=== PATIENT | female | born 1935 | race Caucasian/White ===

== ENCOUNTER 2016-06-24 11:51 | Inpatient (IN) | payer MEDICARE, OTHER ==
--- NOTE | ~2016-06-24 | DS ---
Discharge Summary [facility] [address] [facility] [place] [place]. [address] NAME: IVAN PEREYRA : 37 STATUS : DIS IN PAT#: [id number] AGE: 81 ADM/REG DATE : 06/24/16 MR#: [id number] REPORT SERV DATE: 07/01/16 DICTATED BY: TERRENCE CONNOR DATE: 06/30/16 REPORT STATUS : Draft TRANSCRIBED BY: MODL DATE: 06/30/16 ADMISSION DATE: 06/24/2016 DISCHARGE DATE: 06/30/2016 DISCHARGE DIAGNOSES: 1. Enterococcal sepsis. 2. Enterococcal pyelonephritis. 3. Acute kidney injury, currently improved. 4. Chronic kidney disease, stage V. 5. Hypokalemia, improved. 6. Metabolic acidosis, resolved. 7. Uncontrolled hypertension, improved. 8. Chronic pain, on home medications. 9. Bradyarrhythmia, possibly rate to Robinul, currently stable. 10.Chronic anemia. 11.Acute thrombocytopenia with present illness, currently improved. 12.Anxiety and depression, on treatment. 13.Deconditioning and immobility, will need rehab. 14.Chronic obstructive pulmonary disease. 15.Pleural effusions. 16.Asymptomatic cholelithiasis. 17.Nonobstructing renal stone. 18.Asymptomatic diverticulosis. 19.B12. OPERATIONS AND PROCEDURES: None. BRIEF HISTORY OF PRESENT ILLNESS: The patient is an 81-year-old female, who was triaged in the emergency room for complaint of generalized weakness and an elevated temperature. For detailed history and physical exam, please see note dictated by Dr. Teetee Vaughn on 06/24/2016. HOSPITAL COURSE: After being admitted to the hospital, this patient was cared for by Dr. Sj Blandon. Please refer to interim summary dictated by Dr. Blandon on 06/29/2016. I took over this patient's care on 06/30/2016. This patient was doing fairly well. All her parameters remained stable. After discussing her care with Dr. Blandon, it was decided that she was ready to go to a skilled unit. She was approved and is being discharged to skilled unit. DISCHARGE DISPOSITION: To group home facility. DISCHARGE ACTIVITY: Per facility. DISCHARGE DIET: Low-sodium diet. DISCHARGE MEDICATIONS: Acetaminophen with codeine 15 mL every four hours for pain, Norvasc 5 Discharge Summary [facility] [address] [place]. [address] NAME: IVAN PEREYRA : 36 STATUS : DIS IN PAT#: [id number] AGE: 81 ADM/REG DATE : 06/24/16 MR#: [id number] REPORT SERV DATE: 07/01/16 DICTATED BY: TERRENCE CONNOR DATE: 06/30/16 REPORT STATUS : Draft TRANSCRIBED BY: MODL DATE: 06/30/16 mg twice daily, vitamin B12 of 2500 mcg once daily, Lexapro 20 mg once daily, Pepcid 20 mg once daily, heparin 5000 units subcu every 12 hours, potassium 20 mEq once daily, sodium bicarb 1300 mg p.o. three times daily, ampicillin 1 g every six hours through 07/07/2016. Colace 100 mg p.o. daily p.r.n., Zofran 4 mg p.o. sublingual p.r.n., Lasix 20 mg p.o. daily. Over the counter eye drops. DISCHARGE FOLLOWUP: With Dr. Reta Chan post rehab. About 25 minutes spent planning this patient's discharge, reviewing reconciled medications by Dr. Blandon, documenting this discharge. KEY/STIVEN Terrence Connor M.D. / [id number] CC: Gal Burgess D.O.
--- NOTE | ~2016-06-24 | HP ---
History And Physical [place] [id number] [facility] [place]. [address] NAME: IVAN PEREYRA : 36 STATUS : ADM IN [facility]#: [id number] AGE: 81 ADM/REG DATE : 06/24/16 MR#: [id number] REPORT SERV DATE: 06/24/16 DICTATED BY: DANILO VAUGHN DATE: 06/24/16 REPORT STATUS : Draft TRANSCRIBED BY: STIVEN DATE: 06/24/16 DATE OF ADMISSION: 06/24/2016 CHIEF COMPLAINT: Fever. HISTORY OF PRESENT ILLNESS: The patient is an 81-year-old white female, who resides with her family. 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 So it is difficult to tell exactly with the history is but they do report that over the last 24 hours, she has felt poor. She has been generally weak. Was unable to stand last evening. Today she had a fever up to 103 in the emergency department. She denies dysuria. She did have chills. She denies abdominal pain. Denies chest pain, has not had any nausea, vomiting, or diarrhea, just some vague complaints of fever and weakness. She presented here via family. She is very resistant to really receive any medical care. She refuses lab sticks at doctor's offices and has not really followed up with Nephrology as she was supposed to. She was here back in July 2014 with an episode of acute kidney injury. Creatinine as high as 9 at that time, the etiology was unclear. Discharge creatinine was around 3.7. She was subsequently supposed to follow up with Nephrology which I am not sure that she ever did. Her last labs here are from August 2014 and at that time, her creatinine was 3.6. No other real history is obtainable. She was flu negative here in the ER. PAST MEDICAL HISTORY: 1. Previous hypertension. 2. Obesity, status post gastric bypass. 3. Depression. 4. Osteoarthritis. 5. Chronic kidney disease. 6. Possible COPD is listed. 7. Anemia chronic. SURGICAL HISTORY: Gastric bypass surgery. Cataract surgery. Breast biopsy. Carpal tunnel repair. ALLERGIES: NO KNOWN DRUG ALLERGIES. HOME MEDICATIONS: Reviewed and attached. SOCIAL HISTORY: She continues to smoke about a half pack per day. She quit for some time but she started back recently. She smoked for many years, up to 30 years ago. She drinks 2 beers to 4 beers per day but does not use any drugs. She lives with family member. She sleeps in a recliner. She still ambulates but it is difficult. REVIEW OF SYSTEMS: Full 10-point review of systems obtained with pertinent and positives mentioned in the HPI. FAMILY HISTORY: Mother is living at 102, she suffers from anemia and heart failure. Her father of hepatitis C and cirrhosis. History And Physical [address] [address] NAME: IVAN PEREYRA : 37 STATUS : ADM IN PAT#: [id number] AGE: 81 ADM/REG DATE : 06/24/16 MR#: [id number] REPORT SERV DATE: 06/24/16 DICTATED BY: DANILO VAUGHN DATE: 06/24/16 REPORT STATUS : Draft TRANSCRIBED BY: STIVEN DATE: 06/24/16 PHYSICAL EXAMINATION: VITAL SIGNS: She is currently 98/44, recheck was 102/41, other blood pressure was 100/38, sats are 94%, respiratory rate of 21, and pulse is in the 60s to 70s, and T-max here was 103.2. GENERAL: Well-developed white female, obese HEENT: Normocephalic, atraumatic. Throat is clear. NECK: Supple. HEART: Regular rate and rhythm. LUNGS: Grossly clear but diminished at the bases. ABDOMEN: Soft, nondistended. She had some minimal tenderness in the suprapubic area. EXTREMITIES: Warm and dry. Skin is intact. She had no obvious rashes or lesions. NEUROLOGIC: She has had her eyes closed sleepy but arouses easily and answers questions appropriately although she does not recall some of the details of her ongoing illness her family reports this is not new. Speech is intact. Strength and tone are symmetrical in all four extremities. LAB AND X-RAY STUDIES: UA shows large blood, moderate leukocyte esterase, 28 white cells, as well as 44 reds. Basic metabolic panel is essentially sodium 140, potassium 3.7, chloride 107, CO2 of 21, BUN and creatinine 35 and 3.70. Glucose 108. LFTs are normal with an albumin of 2.9. Chest x-ray shows bibasilar atelectasis. Lactate is 2.1. CBC: She has a white count of 9, H and H 10.8 and 33.5, platelets are 156. Coags are normal. Flu swab is negative. ASSESSMENT/PLAN: 1. Febrile illness with associated positive UA likely consistent with urinary tract infection. We will place her on empiric antibiotics given the fact that she has SIRS/sepsis upon presentation with an elevated procalcitonin of 0.69. I am going to treat her more aggressively. She has a history of Enterococcus on a previous urine culture. We will cover her with IV Zosyn and vancomycin. We will culture her blood and her urine. We will follow her hemodynamics closely. I am going to aggressively fluid resuscitate her right now in the emergency department. She is going to get an additional liter of normal saline now, then 2 more liters at 200 mL an hour, then we will change her over to some half-normal maintenance fluids. We will place the Jerez catheter. I think given the fact she has significant blood in her urine and urinary tract infection with obvious SIRS or sepsis. I think she does need a CT of her abdomen and pelvis to rule out obstruction. We will do a stat CT of the abdomen and pelvis without contrast. 2. Chronic kidney disease. Her creatinine is where it was when she left in August 2014. I am not sure if she has had other labs done in the interim. Her family states she is resistant to have her blood drawn at most doctor's visits. I am not sure today if she may have a component of acute kidney injury. It is difficult to tell that she is going to be hydrated aggressively. Certainly we would not surprise me if she has a little ATN. She has had some mild hypotension here in the emergency department. We will hydrate her. We will scan her to rule out obstruction. Place a Jerez catheter. Follow in's and out's and go from there. She is not interested in any extensive treatment for kidney failure and states she would never want dialysis. History And Physical [address] [place]. [address] NAME: IVAN PEREYRA : 37 STATUS : ADM IN [facility]#: [id number] AGE: 81 ADM/REG DATE : 06/24/16 MR#: [id number] REPORT SERV DATE: 06/24/16 DICTATED BY: DANILO VAUGHN DATE: 06/24/16 REPORT STATUS : Draft TRANSCRIBED BY: STIVEN DATE: 06/24/16 3. Morbid obesity. 4. Osteoarthritis with recurrent steroid injections. 5. History of previous hypertension. 6. Deep venous thrombosis prophylaxis with subcutaneous heparin. 7. Tobacco abuse. Needs cessation. 8. Depression. Continue Lexapro. 9. Disposition pending above. PAULA/STIVEN Danilo Vaughn M.D. / [id number] CC: Gal Torres D.O.
--- NOTE | ~2016-06-24 | IDS ---
Interim Discharge Summary [place] [id number] [facility] [place]. [address] NAME: IVAN PEREYRA : 37 STATUS : ADM IN PAT#: [id number] AGE: 81 ADM/REG DATE : 06/24/16 MR#: [id number] REPORT SERV DATE: 06/30/16 DICTATED BY: KELLIE BLANDON DATE: 06/29/16 REPORT STATUS : Draft TRANSCRIBED BY: MODL DATE: 06/29/16 ADMISSION DATE: 06/24/2016 DISCHARGE DATE: DATE OF INTERIM SUMMARY: 06/29/2016. CURRENT DIAGNOSES: 1. Enterococcal sepsis. 2. Enterococcal pyelonephritis. 3. Acute kidney injury, improved. 4. Chronic kidney disease V. 5. Hypokalemia, improved. 6. Metabolic acidosis, improved. 7. Uncontrolled hypertension, improved. 8. Chronic pain, on home med Rx. 9. Adan arrhythmia, possibly related to ropinirole, ropinirole discontinued. 10.Chronic anemia. 11.Acute thrombocytopenia with present illness, improved. 12.Anxiety and depression, on treatment. 13.Deconditioning and immobility, rehab plan. 14.Chronic obstructive pulmonary disease. 15.Pleural effusion. 16.Asymptomatic cholelithiasis. 17.Nonobstructing renal stones. 18.Asymptomatic diverticulosis. 19.B12 deficiency. OPERATIONS AND PROCEDURES: None. PRESENT ILLNESS: This is an 81-year-old white female who was triaged in the emergency room on 06/24/2016 at 1051 hours complaining of generalized weakness. In the emergency room, her blood pressure was 143/50, temp 103.2, pulse 74, respirations 18, and O2 saturation 95% on 2 L. In the emergency room, she had a creatinine of 3.7 with an abnormal urine. She was referred to the Hospitalist Service for admission. She was seen by Dr. Teetee Vaughn, admitted as described on admission history and physical examination. ADDITIONAL HISTORY: Per Dr. Vaughn. PHYSICAL EXAMINATION: Per Dr. Vaughn. ADMISSION LABORATORY: Per Dr. Vaughn. Interim Discharge Summary [place] [id number] [facility] [place]. [address] NAME: IVAN PEREYRA : 37 STATUS : ADM IN PAT#: [id number] AGE: 81 ADM/REG DATE : 06/24/16 MR#: [id number] REPORT SERV DATE: 06/30/16 DICTATED BY: KELLIE BLANDON DATE: 06/29/16 REPORT STATUS : Draft TRANSCRIBED BY: STIVEN DATE: 06/29/16 HOSPITAL COURSE: She was admitted by Dr. Vaughn with febrile illness consistent with urinary tract infection. Cultures were obtained. She was placed on IV Zosyn and vancomycin as she had a history of previous enterococcal urinary tract infection documented in [facility]. In addition, she was given crystalloid volume resuscitation. Renal imaging was obtained. Her hospitalist care was assumed by the undersigned. Her imaging included a CT abdomen and pelvis. It showed moderate atrophy of the right kidney with numerous, stable, benign-appearing cysts. There was mild atrophy of the left kidney. She was noted to have nonobstructing bilateral kidney stones. She has a mildly dilated extrarenal pelvis on the left with no caliceal dilatation on the right. There were no ureteral stones or ureteral dilatation identified. There was mild bilateral perinephric stranding with minimal ascites and fluid along the left pericolic gutter. There was a gallstone measuring 1.5 cm without evidence of acute cholecystitis. Her blood and urine cultures grew Enterococcus faecalis group D that were chen sensitive. Her antimicrobial therapy was changed to IV ampicillin. A PICC line has been placed in anticipation of a parenteral 2-week antimicrobial course. A blood culture done on 06/27/2016 on therapy is no growth. An echocardiogram done on 06/27/2016 shows normal LV size with preserved EF of 55% to 60% with normal RV size and systolic function and mild mitral regurgitation. She does not have any hardware necessitating more prolonged therapy. Biochemically, her white blood cell count on admission was normal at 9.1 and subsequent white counts have been 8.66, 3.5, 3.6, and 4.7. A procalcitonin was 0.69 on admission and it has not been repeated. Symptomatically, she never had any urinary tract symptoms and did not have any during her hospitalization. Notably, both the patient and her see a dramatic improvement in her strength, agility, abilities, and mental status with her current therapy. Her creatinine was 3.7 on admission. With hydration and treatment of her sepsis, her creatinine today is 1.99. Her potassium is 3.7. Her bicarbonate on therapy is increased from 17 to 21. She was noted to have significant bradycardia with some pauses. She might have sick sinus syndrome. It may be related to her ropinirole and this has been discontinued. Her TSH is normal at 0.986. She was seen by Physical Therapy. [facility] was [facility]. The patient and 's choice for [facility]. She has been approved pending PASRR. [facility]. Interim Discharge Summary [address] [address] NAME: IVAN PEREYRA : 37 STATUS : ADM IN PAT#: [id number] AGE: 81 ADM/REG DATE : 06/24/16 MR#: [id number] REPORT SERV DATE: 06/30/16 DICTATED BY: KELLIE BLANDON DATE: 06/29/16 REPORT STATUS : Draft TRANSCRIBED BY: STIVEN DATE: 06/29/16 DD/STIVEN Kellie Blandon M.D. / [id number]
[~2016-06-24 11:51] MED LIST: CALTRA600D PO; MAX25 PO; PROZAC40 MG PO; WELLXL300 PO; [UNRECOGNIZED DRUG - OTHER] PO
[2016-06-24 11:54] LABS: INFLUENZA A SCREEN NEGATIVE (NEGATIVE); INFLUENZA B SCREEN NEGATIVE (NEGATIVE)
[2016-06-24 12:02] LABS: BASOPHILS 0 %; EOSINOPHILS 0 %; ER CBC TAT 0 Hrs 05 Mins; HEMATOCRIT 33.5 % (36.0-48.0); HEMOGLOBIN 10.8 g/dL (12.0-16.0); IMMATURE GRANULOCYTES 0.7 %; IMMATURE GRANULOCYTES ABSOLUTE 0.06 10/3/uL (0.0-0.11); LYMPHOCYTES 3.8 %; LYMPHOCYTES ABSOLUTE 0.35 10/3/uL (0.67-4.30); MANUAL DIFF NO %; MEAN CORPUS HGB CONC 32.2 g/dL (32.0-36.0); MEAN CORPUSCULAR HEMOGLOB 26.7 pg (26.0-34.0); MEAN CORPUSCULAR VOLUME 82.7 fL (80-100); MONOCYTES 4.7 %; MONOCYTES ABSOLUTE 0.43 10/3/uL (0.21-1.20); NEUTROPHILS 90.8 %; NEUTROPHILS ABSOLUTE 8.27 10/3/uL (2.02-8.40); PLATELET COUNT 156 10/3/uL (150-400); RBC DISTRIBUTION WIDTH 14.5 % (12.0-16.0); RED CELL COUNT 4.05 10/6/uL (4.0-5.6); WHITE BLOOD CELLS 9.1 10/3/uL (4.5-10.5)
[2016-06-24] MEDS ORDERED: L40 PO (12:10)
[2016-06-24] MEDS ORDERED: LEXAPRO20 PO (12:11)
[2016-06-24] MEDS ORDERED: REQUIP25 PO (12:11)
[2016-06-24] MEDS ORDERED: VITAMIN B-122500 MCG SL (12:11)
[2016-06-24] MEDS ORDERED: TYLENOL W/CODEINE PO/LIQ (12:12)
[2016-06-24 12:13] LABS: INTERNATIONAL NORMAL RATI 1.2 UNITS (-); PROTIME (NOT ORD) 15.1 SEC (12.0-14.5)
[2016-06-24] MEDS ORDERED: OTC EYE DROP OPH (12:13)
[2016-06-24] MEDS ORDERED: DSS PO (12:13)
[2016-06-24 12:14] LABS: PARTIAL THROMBO TIME 33.9 SEC (22.5-37.2)
[2016-06-24] MEDS ORDERED: STEROID INJECTION IM (12:14)
[2016-06-24 12:19] LABS: A/G RATIO 0.7 (0.7-1.9); ALBUMIN 2.9 G/DL (3.5-5.0); BUN (BLOOD UREA NITROGEN) 35 MG/DL (6-23); CALCIUM, SERUM 8.4 MG/DL (8.5-10.4); CHLORIDE, SERUM 107 MMOL/L (96-112); GFR AFRICAN AMERICAN 13 ML/MIN (>=60); GFR NON AFRICAN AMERICAN 11 ML/MIN (>=60); GLOBULIN 4.4 G/DL (2.5-4.1); POTASSIUM, SERUM 3.7 MMOL/L (3.5-5.3); SGOT(AST) 15 U/L (5-40); SGPT(ALT) 10 U/L (5-65); SODIUM, SERUM 140 MMOL/L (135-148); TOTAL PROTEIN 7.3 G/DL (6.0-8.5)
[2016-06-24 12:19] LABS: LACTATE 2.1 MMOL/L (0.3-2.4)
[2016-06-24 12:21] LABS: ALKALINE PHOSPHATASE 105 U/L (45-117); CO2 (CARBON DIOXIDE) 21 MMOL/L (24-34); GLUCOSE, SERUM 108 MG/DL (60-99); TOTAL BILIRUBIN 1.2 MG/DL (0-1.2)
[2016-06-24 12:58] LABS: PROCALCITONIN 0.69 ng/mL (<0.5)
[2016-06-24 13:07] LABS: ASCORBIC ACID (UR NOT ORDER) NEG (NEG); BILIRUBIN, URINE NEGATIVE (NEG); ER URINALYSIS TAT 0 Hrs 15 Mins; KETONE, URINE NEGATIVE (NEG); LEUKOCYTE ESTERASE(NOT OR MOD (NEG); NITRITE (URINE) NEG (NEG); WBC (NOT ORDERED) (RFLEX) 28 (0-5)
[2016-06-24 19:20] LABS: CPK 61 U/L (0-200)
[2016-06-25 08:00] LABS: BASOPHILS 0.2 %; BASOPHILS ABSOLUTE 0.02 10/3/uL (0.0-0.16); EOSINOPHILS 0.1 %; EOSINOPHILS ABSOLUTE 0.01 10/3/uL (0.0-0.53); HEMOGLOBIN 8.8 g/dL (12.0-16.0); IMMATURE GRANULOCYTES 0.2 %; IMMATURE GRANULOCYTES ABSOLUTE 0.02 10/3/uL (0.0-0.11); LYMPHOCYTES 3.8 %; LYMPHOCYTES ABSOLUTE 0.33 10/3/uL (0.67-4.30); MEAN CORPUS HGB CONC 33.2 g/dL (32.0-36.0); MEAN CORPUSCULAR HEMOGLOB 27.6 pg (26.0-34.0); MEAN CORPUSCULAR VOLUME 83.1 fL (80-100); MEAN PLATELET VOLUME 11.2 fL (9.2-13.0); MONOCYTES 11.7 %; MONOCYTES ABSOLUTE 1.01 10/3/uL (0.21-1.20); NEUTROPHILS ABSOLUTE 7.21 10/3/uL (2.02-8.40); PLATELET COUNT 133 10/3/uL (150-400); RBC DISTRIBUTION WIDTH 14.5 % (12.0-16.0); WHITE BLOOD CELLS 8.6 10/3/uL (4.5-10.5)
[2016-06-25 08:02] LABS: HEMATOCRIT 26.5 % (36.0-48.0); MANUAL DIFF NO %; RED CELL COUNT 3.19 10/6/uL (4.0-5.6)
[2016-06-25 08:14] LABS: BUN (BLOOD UREA NITROGEN) 38 MG/DL (6-23); CALCIUM, SERUM 7.5 MG/DL (8.5-10.4); CHLORIDE, SERUM 111 MMOL/L (96-112); CO2 (CARBON DIOXIDE) 18 MMOL/L (24-34); CREATININE 3.29 MG/DL (0.55-1.02); GFR AFRICAN AMERICAN 15 ML/MIN (>=60); GFR NON AFRICAN AMERICAN 13 ML/MIN (>=60); GLUCOSE, SERUM 102 MG/DL (60-99); POTASSIUM, SERUM 3.4 MMOL/L (3.5-5.3); SODIUM, SERUM 143 MMOL/L (135-148)
[2016-06-25 19:27] LABS: FREE T4 0.88 NG/DL (0.76-1.46); TROPONIN I <0.02 NG/ML (<0.05); ULTRASENSITIVE TSH 0.986 MCIU/ML (0.358-3.740)
[2016-06-26 05:19] LABS: BASOPHILS 0.2 %; BASOPHILS ABSOLUTE 0.01 10/3/uL (0.0-0.16); EOSINOPHILS ABSOLUTE 0.12 10/3/uL (0.0-0.53); HEMATOCRIT 27.8 % (36.0-48.0); IMMATURE GRANULOCYTES 0.2 %; IMMATURE GRANULOCYTES ABSOLUTE 0.01 10/3/uL (0.0-0.11); LYMPHOCYTES 5.5 %; LYMPHOCYTES ABSOLUTE 0.33 10/3/uL (0.67-4.30); MEAN CORPUS HGB CONC 32.4 g/dL (32.0-36.0); MEAN CORPUSCULAR HEMOGLOB 27.3 pg (26.0-34.0); MEAN CORPUSCULAR VOLUME 84.2 fL (80-100); MEAN PLATELET VOLUME 11.3 fL (9.2-13.0); MONOCYTES 17.7 %; MONOCYTES ABSOLUTE 1.07 10/3/uL (0.21-1.20); NEUTROPHILS 74.4 %; NEUTROPHILS ABSOLUTE 4.49 10/3/uL (2.02-8.40); PLATELET COUNT 122 10/3/uL (150-400); RBC DISTRIBUTION WIDTH 14.6 % (12.0-16.0)
[2016-06-26 05:22] LABS: MANUAL DIFF NO %
[2016-06-26 05:33] LABS: T PROTEIN (ELECT)(NOT OR 5.2 G/DL (6.0-8.5)
[2016-06-26 05:37] LABS: BUN (BLOOD UREA NITROGEN) 35 MG/DL (6-23); CALCIUM, SERUM 7.5 MG/DL (8.5-10.4); CHLORIDE, SERUM 111 MMOL/L (96-112); CO2 (CARBON DIOXIDE) 17 MMOL/L (24-34); CREATININE 2.98 MG/DL (0.55-1.02); FERRITIN 123 NG/ML (8-252); GFR AFRICAN AMERICAN 16 ML/MIN (>=60); GFR NON AFRICAN AMERICAN 14 ML/MIN (>=60); GLUCOSE, SERUM 110 MG/DL (60-99); IRON BINDING CAPACITY 364 MCG/DL (225-410); IRON, SERUM 19 MCG/DL (35-150); POTASSIUM, SERUM 3.4 MMOL/L (3.5-5.3); SODIUM, SERUM 140 MMOL/L (135-148)
[2016-06-26 05:38] LABS: ALBUMIN 1.8 G/DL (3.5-5.0); PHOSPHORUS, SERUM 3.9 MG/DL (2.5-4.5)
[2016-06-26 11:08] LABS: A/G 0.85 RATIO (0.9-2.10); ALB RELATIVE % 45.9 % (60.0-89.0); ALBUMIN (ELECTRO) 2.39 GM/DL (3.2-5.5); ALPHA 1 RELAT % (NOT ORD) 5.8 % (1.0-4.0); ALPHA 2 (ELECTRO) 1.01 GM/DL (0.5-1.10); ALPHA 2 RELAT % 19.5 % (4.5-26.0); BETA GLOBULIN (SPE) 0.71 GM/DL (0.60-1.30); BETA RELATIVE % 13.6 % (9.0-22.0); GAMMA GLOBULIN (SPE) 0.79 G/DL (0.70-1.60); GAMMA RELAT % 15.2 % (6.0-22.0)
[2016-06-27 07:06] LABS: HEMATOCRIT 27.7 % (36.0-48.0); MEAN CORPUS HGB CONC 32.5 g/dL (32.0-36.0); MEAN CORPUSCULAR VOLUME 83.2 fL (80-100); MEAN PLATELET VOLUME 11.5 fL (9.2-13.0); PLATELET COUNT 152 10/3/uL (150-400); RBC DISTRIBUTION WIDTH 14.5 % (12.0-16.0); RED CELL COUNT 3.33 10/6/uL (4.0-5.6)
[2016-06-27 07:16] LABS: MANUAL DIFF YES %; WHITE BLOOD CELLS 3.5 10/3/uL (4.5-10.5)
[2016-06-27 07:21] LABS: ALBUMIN 1.9 G/DL (3.5-5.0); CALCIUM, SERUM 7.8 MG/DL (8.5-10.4); CHLORIDE, SERUM 113 MMOL/L (96-112); CO2 (CARBON DIOXIDE) 18 MMOL/L (24-34); CREATININE 2.52 MG/DL (0.55-1.02); GFR AFRICAN AMERICAN 20 ML/MIN (>=60); GFR NON AFRICAN AMERICAN 17 ML/MIN (>=60); GLUCOSE, SERUM 96 MG/DL (60-99); PHOSPHORUS, SERUM 3.6 MG/DL (2.5-4.5); POTASSIUM, SERUM 3.5 MMOL/L (3.5-5.3); SODIUM, SERUM 142 MMOL/L (135-148)
[2016-06-27 07:22] LABS: BUN (BLOOD UREA NITROGEN) 28 MG/DL (6-23)
[2016-06-27 07:35] LABS: BAND NEUTROPHILS 1 %; EOSINOPHILS 7 %; EOSINOPHILS ABSOLUTE (CALC) 0.25 10/3/uL (0.0-0.53); LYMPHOCYTES 11 %; LYMPHOCYTES ABSOLUTE (CALC) 0.39 10/3/uL (0.67-4.30); MONOCYTES 14 %; MONOCYTES ABSOLUTE (CALC) 0.49 10/3/uL (0.21-1.20); NEUTROPHILS ABSOLUTE (CALC) 2.38 10/3/uL (2.02-8.40); SEGMENTED NEUTROPHIL (0) 67 %; TOTAL NUCLEATED CELLS 100
[2016-06-27 07:36] LABS: PLATELET ESTIMATE ADQ (ADEQUATE); RBC MORPHOLOGY NORM (NORMAL)
[2016-06-28 09:10] LABS: BASOPHILS 0.8 %; BASOPHILS ABSOLUTE 0.03 10/3/uL (0.0-0.16); EOSINOPHILS 3.6 %; EOSINOPHILS ABSOLUTE 0.13 10/3/uL (0.0-0.53); HEMOGLOBIN 10.1 g/dL (12.0-16.0); IMMATURE GRANULOCYTES 0.6 %; IMMATURE GRANULOCYTES ABSOLUTE 0.02 10/3/uL (0.0-0.11); LYMPHOCYTES 22.1 %; MEAN CORPUS HGB CONC 31.7 g/dL (32.0-36.0); MEAN CORPUSCULAR HEMOGLOB 26.2 pg (26.0-34.0); MEAN CORPUSCULAR VOLUME 82.6 fL (80-100); MEAN PLATELET VOLUME 10.9 fL (9.2-13.0); MONOCYTES ABSOLUTE 0.58 10/3/uL (0.21-1.20); NEUTROPHILS 56.9 %; NEUTROPHILS ABSOLUTE 2.06 10/3/uL (2.02-8.40); PLATELET COUNT 173 10/3/uL (150-400); RBC DISTRIBUTION WIDTH 14.6 % (12.0-16.0); RED CELL COUNT 3.86 10/6/uL (4.0-5.6); WHITE BLOOD CELLS 3.6 10/3/uL (4.5-10.5)
[2016-06-28 09:11] LABS: HEMATOCRIT 31.9 % (36.0-48.0); MANUAL DIFF NO %
[2016-06-28 09:21] LABS: CALCIUM, SERUM 8.5 MG/DL (8.5-10.4); CHLORIDE, SERUM 117 MMOL/L (96-112); CO2 (CARBON DIOXIDE) 19 MMOL/L (24-34); CREATININE 2.21 MG/DL (0.55-1.02); GFR AFRICAN AMERICAN 24 ML/MIN (>=60); GFR NON AFRICAN AMERICAN 20 ML/MIN (>=60); GLUCOSE, SERUM 101 MG/DL (60-99); SODIUM, SERUM 148 MMOL/L (135-148)
[2016-06-28 09:22] LABS: BUN (BLOOD UREA NITROGEN) 22 MG/DL (6-23); POTASSIUM, SERUM 4.2 MMOL/L (3.5-5.3)
[2016-06-29 04:59] LABS: BASOPHILS 0.6 %; BASOPHILS ABSOLUTE 0.03 10/3/uL (0.0-0.16); EOSINOPHILS 3.4 %; EOSINOPHILS ABSOLUTE 0.16 10/3/uL (0.0-0.53); IMMATURE GRANULOCYTES 0.2 %; IMMATURE GRANULOCYTES ABSOLUTE 0.01 10/3/uL (0.0-0.11); LYMPHOCYTES 16.7 %; LYMPHOCYTES ABSOLUTE 0.78 10/3/uL (0.67-4.30); MEAN CORPUS HGB CONC 32.6 g/dL (32.0-36.0); MEAN CORPUSCULAR HEMOGLOB 26.9 pg (26.0-34.0); MEAN CORPUSCULAR VOLUME 82.6 fL (80-100); MEAN PLATELET VOLUME 10.9 fL (9.2-13.0); MONOCYTES 14.8 %; MONOCYTES ABSOLUTE 0.69 10/3/uL (0.21-1.20); NEUTROPHILS 64.3 %; PLATELET COUNT 200 10/3/uL (150-400); RBC DISTRIBUTION WIDTH 14.6 % (12.0-16.0); RED CELL COUNT 3.34 10/6/uL (4.0-5.6); WHITE BLOOD CELLS 4.7 10/3/uL (4.5-10.5)
[2016-06-29 05:06] LABS: HEMATOCRIT 27.6 % (36.0-48.0); MANUAL DIFF NO %
[2016-06-29 05:08] LABS: BUN (BLOOD UREA NITROGEN) 19 MG/DL (6-23); CALCIUM, SERUM 8.7 MG/DL (8.5-10.4); CHLORIDE, SERUM 115 MMOL/L (96-112); CO2 (CARBON DIOXIDE) 21 MMOL/L (24-34); CREATININE 1.99 MG/DL (0.55-1.02); GFR AFRICAN AMERICAN 27 ML/MIN (>=60); GFR NON AFRICAN AMERICAN 23 ML/MIN (>=60); GLUCOSE, SERUM 104 MG/DL (60-99); POTASSIUM, SERUM 3.7 MMOL/L (3.5-5.3); SODIUM, SERUM 146 MMOL/L (135-148)
[2016-06-30 05:39] LABS: BASOPHILS 0.5 %; BASOPHILS ABSOLUTE 0.02 10/3/uL (0.0-0.16); EOSINOPHILS 5.4 %; EOSINOPHILS ABSOLUTE 0.22 10/3/uL (0.0-0.53); HEMATOCRIT 26.3 % (36.0-48.0); HEMOGLOBIN 8.5 g/dL (12.0-16.0); IMMATURE GRANULOCYTES 0.5 %; IMMATURE GRANULOCYTES ABSOLUTE 0.02 10/3/uL (0.0-0.11); LYMPHOCYTES 14.5 %; LYMPHOCYTES ABSOLUTE 0.59 10/3/uL (0.67-4.30); MEAN CORPUS HGB CONC 32.3 g/dL (32.0-36.0); MEAN CORPUSCULAR HEMOGLOB 27.1 pg (26.0-34.0); MEAN CORPUSCULAR VOLUME 83.8 fL (80-100); MEAN PLATELET VOLUME 10.8 fL (9.2-13.0); MONOCYTES 19.7 %; NEUTROPHILS 59.4 %; NEUTROPHILS ABSOLUTE 2.41 10/3/uL (2.02-8.40); PLATELET COUNT 209 10/3/uL (150-400); RBC DISTRIBUTION WIDTH 14.7 % (12.0-16.0); RED CELL COUNT 3.14 10/6/uL (4.0-5.6); WHITE BLOOD CELLS 4.1 10/3/uL (4.5-10.5)
[2016-06-30 05:40] LABS: MANUAL DIFF NO %
[2016-06-30 05:58] LABS: BUN (BLOOD UREA NITROGEN) 16 MG/DL (6-23); CALCIUM, SERUM 8.1 MG/DL (8.5-10.4); CHLORIDE, SERUM 112 MMOL/L (96-112); CO2 (CARBON DIOXIDE) 25 MMOL/L (24-34); CREATININE 1.95 MG/DL (0.55-1.02); GFR AFRICAN AMERICAN 27 ML/MIN (>=60); GFR NON AFRICAN AMERICAN 24 ML/MIN (>=60); GLUCOSE, SERUM 91 MG/DL (60-99); SODIUM, SERUM 144 MMOL/L (135-148)
== END 2016-06-30 16:31 | DRG 872 ==
LOC: ER 11:51 → 6NO 15:16
PROVIDERS: Hospitalist; Internal Medicine
PROC: 02HV33Z Insertion of Infusion Device into Superior Vena Cava, Percutaneous Approach (ICD-10-PCS; principal; 2016-06-28)
PROC: 4A02X4A Measurement of Cardiac Electrical Activity, Guidance, External Approach (ICD-10-PCS; 2016-06-28)
DX: A41.81 Sepsis due to Enterococcus (principal); N17.9 Acute kidney failure, unspecified; J90 Pleural effusion, not elsewhere classified; E87.2 Acidosis; I12.0 Hypertensive chronic kidney disease with stage 5 chronic kidney disease or end stage renal disease; N18.5 Chronic kidney disease, stage 5; D69.6 Thrombocytopenia, unspecified; N12 Tubulo-interstitial nephritis, not specified as acute or chronic; E87.6 Hypokalemia; R00.1 Bradycardia, unspecified; D64.9 Anemia, unspecified; F41.9 Anxiety disorder, unspecified; F32.9 Major depressive disorder, single episode, unspecified; J44.9 Chronic obstructive pulmonary disease, unspecified; G89.4 Chronic pain syndrome; K80.20 Calculus of gallbladder without cholecystitis without obstruction; N20.0 Calculus of kidney; K57.30 Diverticulosis of large intestine without perforation or abscess without bleeding; T42.8X5A Adverse effect of antiparkinsonism drugs and other central muscle-tone depressants, initial encounter; E53.8 Deficiency of other specified B group vitamins; E66.01 Morbid (severe) obesity due to excess calories; M19.90 Unspecified osteoarthritis, unspecified site; Z87.440 Personal history of urinary (tract) infections; Z98.84 Bariatric surgery status; F17.210 Nicotine dependence, cigarettes, uncomplicated; Z68.34 Body mass index [BMI] 34.0-34.9, adult
CPT/HCPCS: 36569; 71010; 74176; 80048; 80053; 80069; 80202; 81001; 82550; 82728; 83540; 83550; 83605; 83615; 83735; 83880; 84145; 84155; 84165; 84439; 84443; 84484; 85025; 85610; 85730; 87040; 87077; 87086; 87150; 87186; 87804; 93005; 93306; 96365; 96375; 97161-GP; 97530-GP; 99285; A9270-GY; C1751; G8978-CK-GP; G8979-CJ-GP; J0290; J0360; J0456; J2405; J2543; J3370